=== PATIENT | female | born 1985 | race Caucasian/White ===

== ENCOUNTER 2017-07-03 08:50 | Emergency (ER) | payer OTHER ==
[2017-07-03 09:35] VITALS: BP 94/64
--- NOTE | 2017-07-03 10:04 | UC ---
Throat Pain/Nasal You HPI - HPI Summary HPI Summary: 32 [address] female with [address] LEFT side throat pain x2 days. Denies fever, but had chills. Pt's daughter + strep, dx yesterday. [ End ] - History of Current Complaint Chief Complaint: UCGeneralIllness Stated Complaint: THROAT COMPLAINT Time Seen by Provider: 07/03/17 10:02 Hx Obtained From: Patient Hx Last Menstrual Period: DEPO INJ Onset/Duration: Sudden Onset Severity: Moderate - Allergies/Home Medications Allergies/Adverse Reactions: Allergies Allergy/AdvReac Type Severity Reaction Status Date / Time No Known Allergies Allergy Verified 07/03/17 09:28 PMH/Surg Hx/FS Hx/Imm Hx Previously Healthy: Yes - Surgical History Surgical History: None - Family History Known Family History: Negative: Seizure Disorder - Social History Occupation: Employed Full-time Lives: With Family Alcohol Use: None Substance Use Type: None Smoking Status (MU): Current Every Day Smoker Type: Cigarettes Amount Used/How Often: 1 PPD Cessation Counseling: Patient Advised to Stop - Immunization History Most Recent Influenza Vaccination: none Review of Systems Constitutional: Negative Skin: Negative Eyes: Negative ENT: Sore Throat, Ear Ache, Nasal Discharge Respiratory: Negative Cardiovascular: Negative Gastrointestinal: Negative Genitourinary: Negative Motor: Negative Neurovascular: Negative Musculoskeletal: Negative Neurological: Negative Psychological: Negative All Other Systems Reviewed And Are Negative: Yes Physical Exam Triage Information Reviewed: Yes Appearance: Well-Appearing, No Pain Distress, Well-Nourished Vital Signs: Initial Vital Signs Temp 97.9 F 07/03/17 09:29 Pulse 71 07/03/17 09:29 Resp 16 07/03/17 09:29 BP 94/64 07/03/17 09:29 Pulse Ox 99 07/03/17 09:29 Vital Signs Reviewed: Yes Eye Exam: Normal ENT Exam: Normal ENT: Positive: Pharyngeal erythema, Nasal congestion, TMs normal, Tonsillar swelling. Negative: Tonsillar exudate Dental Exam: Normal Neck exam: Normal Neck: Positive: 1 Respiratory Exam: Normal Cardiovascular Exam: Normal Musculoskeletal Exam: Normal Neurological Exam: Normal Psychological Exam: Normal Skin Exam: Normal Throat Pain/Nasal Course/Dx - Course Course Of Treatment: (+) exposure to strep and now with Strep sx-- start treatment - Differential Dx/Diagnosis Differential Diagnosis/HQI/PQRI: Laryngitis, Pharyngitis, Sinusitis, Tonsillitis , URI Provider Diagnoses: Strep Throat Discharge - Discharge Plan Condition: Good Disposition: HOME Prescriptions: Amoxicillin PO (*) [Amoxicillin 500 MG CAP*] 500 mg PO Q12H #20 cap Patient Education Materials: Strep Throat (ED) Additional Instructions: Follow up with your PCP as needed to ensure resolution of your illness.
== END 2017-07-03 10:19 | disposition home or self-care (01) ==
LOC: UCCORT 08:50
DX: J02.0 Streptococcal pharyngitis (principal); F17.210 Nicotine dependence, cigarettes, uncomplicated
CPT/HCPCS: 99202; G0463